=== PATIENT | female | born 1965 | race Caucasian/White ===

== ENCOUNTER 2017-01-31 13:52 | Emergency (ER) | payer OTHER ==
[~2017-01-31] VITALS: Ht 162.6 cm; Wt 59.0 kg
[2017-01-31] MEDS ORDERED: ZYRTEC10 M5 PO (15:25)
[2017-01-31 15:36] VITALS: BP 165/98
[2017-01-31] MEDS ORDERED: FLEXERIL PO (17:14)
== END 2017-01-31 17:17 | disposition home or self-care (01) ==
LOC: ER 13:52
DX: S01.01XA Laceration without foreign body of scalp, initial encounter (principal); S70.12XA Contusion of left thigh, initial encounter; M25.512 Pain in left shoulder; S40.812A Abrasion of left upper arm, initial encounter; Z88.1 Allergy status to other antibiotic agents; Z88.2 Allergy status to sulfonamides; Z88.5 Allergy status to narcotic agent; V89.2XXA Person injured in unspecified motor-vehicle accident, traffic, initial encounter; Y93.89 Activity, other specified; Y92.89 Other specified places as the place of occurrence of the external cause; Y99.8 Other external cause status